=== PATIENT | female | born 1955 | race Caucasian/White ===

== ENCOUNTER → 2018-12-14 10:07 | Outpatient (POV) | payer MEDICARE, MEDICAID, SELFPAY | PROVIDERS: Visit Provider Nurse Practitioner Acute Care | DX: Z00.00 Encounter for general adult medical examination without abnormal findings (principal) ==

== ENCOUNTER → 2019-04-05 07:42 | Outpatient (CLI) | payer MEDICARE, MEDICAID, SELFPAY ==
--- NOTE | 2019-04-05 08:00 | US_ITS ---
US gallbladder HISTORY: Diarrhea, abdominal pain, nausea ITS.REASON: RUQ PAIN ORDERING PHYSICIAN: Tru Veliz MD PATIENT AGE: 63 years Comparison: None FINDINGS: PANCREAS: Unremarkable. No obvious mass or abnormal fluid collection. No ductal dilatation LIVER: No focal liver lesions demonstrated. Homogeneous echogenicity. No intrahepatic biliary ductal dilatation evident RIGHT KIDNEY: Unremarkable. Normal size and echogenicity. No hydronephrosis. There is a small right renal cyst measuring 1 cm. GALLBLADDER: No gallstones are apparent. There are multiple small polyps and sludge present within the gallbladder. No shadowing stones are apparent., Common bile duct is normal at 2 mm. IMPRESSION: Multiple small gallbladder polyps with sludge. No shadowing stones
== END ==
PROVIDERS: PCP Family Medicine; Visit Provider Family Medicine
DX: R10.11 Right upper quadrant pain (principal)
CPT/HCPCS: 76705

== ENCOUNTER → 2019-04-20 10:07 | Outpatient (CLI) | payer MEDICARE, MEDICAID, SELFPAY ==
--- NOTE | 2019-04-20 10:10 | NM_ITS ---
NM hepatobiliary w pharm HISTORY: ITS.REASON: RUQ PAIN, gallbladder polyps with sludge, abnormal ultrasound ORDERING PHYSICIAN: Tru Veliz MD PATIENT AGE: 63 years COMPARISON: None DOSE: 7.92 MCI TC Choletec 1.1 MCG CCK FINDINGS: Homogeneous activity is present within the hepatic parenchyma. Activity is present in the gallbladder by 10 minutes. Activity is present in the small bowel by 20 minutes. The gallbladder ejection fraction is calculated to be 99% The patient did not report pain or other symptoms during CCK infusion. IMPRESSION: Unremarkable hepatobiliary scan and gallbladder ejection fraction. No evidence of common or cystic duct obstruction with normal gallbladder ejection fraction
--- NOTE | 2019-04-20 11:16 | HMH.ITSHM ---
Current Home Medications as stated by this patient Millie Barrett or sales development representative. []TYLENOL LISINOPRIL ATORVASTATIN ATENOLOL AMLODIPINE
== END ==
PROVIDERS: PCP Family Medicine; Visit Provider Family Medicine
DX: R10.11 Right upper quadrant pain (principal)
CPT/HCPCS: 78227; A9537; J2805

== ENCOUNTER → 2020-02-21 13:29 | Outpatient (CLI) | payer MEDICARE, MEDICAID, SELFPAY ==
--- NOTE | 2020-02-21 13:34 | XR_ITS ---
PROCEDURE: XR CHEST PORTABLE CLINICAL HISTORY: COUGH, LOST VOICE COMPARISON: No exams were available for comparison FINDINGS: The cardiomediastinal silhouette and pulmonary vascularity are within normal limits. There is blunting of the left CP angle may be due to small effusion or pleural thickening. Minimal atelectatic or fibrotic changes are present in the left lung base. The remaining lungs are clear. No acute bony abnormalities. IMPRESSION: Minimal blunting of the left CP angle suggesting small effusion or pleural thickening with minimal atelectatic or fibrotic change in the left lung base Dictated by: Kar Ann MD 02/21/2020 14:26 Electronically signed by Kar Ann MD in [place] 02/21/2020 14:26
== END ==
PROVIDERS: PCP Family Medicine; Visit Provider Family Medicine
DX: R05 Cough (principal); R49.1 Aphonia
CPT/HCPCS: 71045

== ENCOUNTER → 2020-04-03 07:44 | Outpatient (CLI) | payer MEDICARE, MEDICAID, SELFPAY ==
--- NOTE | 2020-04-03 07:51 | MM_ITS ---
PROCEDURE: MM DIG SCREENING MAMM BI W/CAD Digital Breast Tomosynthesis Included CLINICAL INDICATION: SCREENING There is a history of breast cancer in the patient's maternal aunt diagnosed after menopause. COMPARISON: MAMMO from 12/28/2003 DIGMAMMS MAMMOGRAM SCREEN-CERTIFIED INDUSTRIAL HYGIENIST N/C from 12/28/2003 DMSB DIG MAMM-SCREEN [facility] from 07/05/2014 TECHNIQUE: Standard CC and MLO images and 3D Tomosynthesis was obtained. R2 CAD reviewed. FINDINGS: Moderate diffuse somewhat heterogenic fibroglandular densities are seen in both breasts. There is faint arterial calcification in each breast. There is a small benign-appearing nodular density inner quadrant left breast which may have been present previously but has shown slight interval increase in size. This likely is a tiny cyst or fibroadenoma but recommend the patient return for ultrasound examination IMPRESSION: Moderate breast density with possible new nodular lesion left breast BI-RAD Category: 0 Need Additional Imaging Evaluation FOLLOW-UP: IMM Immediate Follow-up Recommended (A letter has been sent to the patient regarding results of the study.) Dictated by: Dr. Jeremi Clements MD 04/04/2020 07:[address] Jeremi Clements MD in [place] 04/04/2020 07:53
== END ==
PROVIDERS: PCP Family Medicine; Visit Provider Family Medicine
DX: Z12.31 Encounter for screening mammogram for malignant neoplasm of breast (principal); Z87.891 Personal history of nicotine dependence; Z12.2 Encounter for screening for malignant neoplasm of respiratory organs
CPT/HCPCS: 77063; 77067

== ENCOUNTER → 2020-04-14 12:52 | Outpatient (CLI) | payer MEDICARE, MEDICAID, SELFPAY ==
--- NOTE | 2020-04-14 12:56 | US_ITS ---
PROCEDURE: US BREAST LT COMPLETE CLINICAL INDICATION: ABN MAMM COMPARISON: MM DIG SCREENING MAMM BI W/CAD from 04/03/2020 FINDINGS: Few somewhat heterogenic echogenicity is seen throughout the breast. There is a tiny hypoechoic cystic-appearing lesion at the 1 to 2 o'clock position near the nipple measuring 0.3 by 0.3 x 0.2 cm and this is likely a tiny cyst. There is a hypoechoic lesion 12 o'clock position near the nipple measuring 0.6 x 0.3 by 0.6 cm. There are internal echoes and this is likely a fibroadenoma. There is a somewhat poorly defined interface between this lesion and the surrounding somewhat heterogenic echogenicity of the breast parenchyma. There is no definite suspicious mass seen in the left breast on the recent mammogram at this location. However in view of the slightly ill-defined borders recommend the patient return for six-month follow-up left mammogram and ultrasound left breast to assure interval stability. IMPRESSION: Probable fibroadenoma 12 o'clock position left breast and recommend short interval follow-up as indicated above Dictated by: Dr. Jeremi Clements MD 04/21/2020 09:[address] Jeremi Clements MD in [place] 04/21/2020 09:10
== END ==
PROVIDERS: PCP Family Medicine; Visit Provider Family Medicine
DX: R92.8 Other abnormal and inconclusive findings on diagnostic imaging of breast (principal)
CPT/HCPCS: 76641

== ENCOUNTER → 2020-10-17 12:35 | Outpatient (CLI) | payer MEDICARE, MEDICAID, SELFPAY ==
--- NOTE | 2020-10-17 12:39 | MM_ITS ---
PROCEDURE: MM DIG MAMM DX UNILAT LT CAD Digital Breast Tomosynthesis Included CLINICAL INDICATION: ABN MAMM Six-month follow-up abnormal mammogram COMPARISON: MG MAMMO from 12/28/2003 MG DMSB DIG MAMM-SCREEN [facility] from 07/05/2014 MG MM DIG SCREENING MAMM BI W/CAD from 04/03/2020 US US BREAST LT COMPLETE from 04/14/2020 US US BREAST LT COMPLETE from 10/17/2020 TECHNIQUE: Standard CC and MLO images and 3D Tomosynthesis was obtained. R2 CAD reviewed. FINDINGS: There is average fibroglandular tissue. There is some minimal nodularity once again noted in the inferior aspect of the left breast which appears to compress on spot compression views. Benign-appearing nodule is noted in the medial aspect of the left breast measuring approximately 5 x 4 mm best seen on the tomograms. Left breast ultrasound: 3 mm cyst at 1 o'clock. At 12 o'clock there is a 5 mm hypoechoic nodule which is not significantly changed. This may even account for the mammographic abnormality. Overall, there has been no significant change. Recommend continued screening mammogram and left breast ultrasound march 2021 IMPRESSION: BI-RAD Category: 2 Benign Finding(s) FOLLOW-UP: 6M 6Month Follow-up (A letter has been sent to the patient regarding results of the study.) Dictated by: Kar Ann MD 10/27/2020 11:00 Kar Ann MD in [place] 10/27/2020 11:00
== END ==
PROVIDERS: PCP Family Medicine; Visit Provider Family Medicine
DX: R92.8 Other abnormal and inconclusive findings on diagnostic imaging of breast (principal)
CPT/HCPCS: 76641; 77061; 77065; G0279

== ENCOUNTER → 2021-03-27 09:08 | Outpatient (CLI) | payer MEDICARE, MEDICAID, SELFPAY ==
--- NOTE | 2021-03-27 09:12 | US_ITS ---
PROCEDURE: US ABDOMEN LIMITED CLINICAL INDICATION: RUQ ABD PAIN COMPARISON: No exams were available for comparison FINDINGS: PANCREAS: Visualized pancreas is unremarkable LIVER: No focal liver lesions. The liver is normal in size. No intra or extrahepatic biliary dilation. The portal vein demonstrates appropriate directional flow. RIGHT KIDNEY: Unremarkable. Normal size and echogenicity. No hydronephrosis GALLBLADDER: Multiple calculi are noted within the gallbladder. No significant gallbladder wall thickening or pericholecystic fluid. Large ascites is noted. IMPRESSION: Ascites. Cholelithiasis without evidence of cholecystitis. Dictated by: Astrid Saldana 03/27/2021 11:33 Astrid Saldana in [place] 03/27/2021 11:33
== END ==
PROVIDERS: PCP Family Medicine; Visit Provider Family Medicine
DX: R10.11 Right upper quadrant pain (principal)
CPT/HCPCS: 76705

== ENCOUNTER → 2021-03-29 07:40 | Outpatient (CLI) | payer MEDICARE, MEDICAID, SELFPAY ==
--- NOTE | 2021-03-29 07:43 | CT_ITS ---
PROCEDURE: CT LUNG SCREENING CLINICAL INDICATION: H/O NICOTINE DEPENDENCE COMPARISON: No exams were available for comparison TECHNIQUE: The exam was performed on a GE Light Speed [address] scanner using 2.90 mGy CTDI. A low dose helical CT CHEST was performed on a multi-detector scanner. All CT scans at the facility use one or more dose reduction, viz: automated exposure control, ma/kV adjustment per patient size (including targeted exams where dose is matched to indication, i.e. head), or iterative reconstruction technique. The LDCT was performed in a facility that meets the criteria for the screening program. Data regarding this exam was submitted to ACR which is an approved registry. The order for this exam indicates that it came as a result of a lung cancer screening counseling shard decision-making visit that included all the elements required of such a visit including smoking cessation. The radiologist interpreting this exam meets the CMS criteria for the LDCT lung cancer screening program. The exam is reported using the Lung-RADS classification scale and reported to the ACR registry. NOTE: This study was performed for the specific purposes of lung cancer screening and is not an alternative to diagnostic chest CT. RADIATION DOSE: CTDI vol(CT dose Index-volume) = 2.90mG DLP (Dose Length Product) = mGcm FINDINGS: Calcified granuloma is noted in the left lower lobe. Atelectasis is noted in the lingula. Minor subpleural interstitial reticulations are noted. There is paraseptal emphysematous changes. Few bullae are noted in the bilateral lower lobes, worse in the left lower lobe. No suspicious lung nodules are noted. No lobar consolidation, pleural effusions or pneumothorax. The central tracheobronchial tree is patent. Nonobstructive calculus noted in the right kidney. Left nephrectomy is noted. Multiple calcified granulomas noted in the liver and spleen. Otherwise the visualized upper abdominal solid organs are unremarkable. Vascular calcification is noted. IMPRESSION: Lung-RADS Category 2 Benign Appearance or Behavior Follow-up: Continue low-dose screening in 12 months is recommended. Minor and early interstitial lung disease. Emphysematous changes. Dictated by: Astrid Saldana 03/29/2021 11:01 Astrid Saldana in [place] 03/29/2021 11:01
--- NOTE | 2021-03-29 07:44 | XR_ITS ---
PROCEDURE: XR DEXA AXIAL SKELETON CLINICAL HISTORY: POST MENOPAUSAL COMPARISON: No exams were available for comparison FINDINGS: The right hip BMD is 0.673 grams/centimeter square with a T-score of -2.2. The left hip BMD is 0.591 grams/centimeters square with a T-score of -2.9. The lumbar spine BMD is 0.882 grams/centimeters square with a T-score of -1.5. IMPRESSION: Osteoporosis of left hip and osteopenia of the right hip and lumbar spine, associated with moderate to high fracture risk. Dictated by: Astrid Saldana 03/29/2021 15:42 Astrid Saldana in [place] 03/29/2021 15:42
== END ==
PROVIDERS: PCP Family Medicine; Visit Provider Family Medicine
DX: Z78.0 Asymptomatic menopausal state (principal); Z87.891 Personal history of nicotine dependence
CPT/HCPCS: 71271; 77080

== ENCOUNTER → 2022-07-15 07:53 | Outpatient (CLI) | payer MEDICARE, MEDICAID, SELFPAY ==
--- NOTE | 2022-07-15 08:02 | MM_ITS ---
PROCEDURE INFORMATION: Exam: MG Bilateral Screening 3D Mammography Exam date and time: 07/15/2022 8:29 AM Age: 66 years old Clinical indication: Screening examination. Her maternal aunt had breast cancer at age 80. TECHNIQUE: Imaging protocol: Bilateral Screening tomosynthesis and 2D mammography including computer-aided detection (CAD) when performed. COMPARISON: 1. MG MM DIG MAMM DX UNILAT LT CAD 10/17/2020 1:03 PM 2. MG MM DIG SCREENING MAMM BI W/CAD 04/03/2020 8:38 AM 3. MG DMSB DIG MAMM-SCREEN [facility] 07/05/2014 10:44 AM 4. US BREAST LT COMPLETE 10/17/2020 1:47 PM FINDINGS: MAMMOGRAPHY: Breast composition: There are scattered areas of fibroglandular density. Mass: No suspicious mass. Architectural distortion: None. Calcifications: No suspicious calcifications. Asymmetric density: None. Skin thickening: None. Axillary adenopathy: None. IMPRESSION: No mammographic evidence of malignancy. Annual screening is recommended unless otherwise clinically indicated. ASSESSMENT: BI-RADS Category 1: Negative
--- NOTE | 2022-07-15 08:03 | XR_ITS ---
FINAL REPORT TECHNIQUE: Bone densitometry calculations of the lumbar spine and left hip were obtained. CLINICAL HISTORY: post menopausal, prior 2020 COMPARISON: March 29, 2021 FINDINGS: DEXA BONE DENSITY AXIAL SKELETON Using L1-4, the bone mineral density of the spine is 0.883 g/cm2, corresponding to T-score of -1.5. Previously measured 0.882 /cm2, corresponding to a T-score of -1.5. Using the left hip, the bone mineral density of the femoral neck is 0.602 g/cm2, corresponding to a T-score of -2.8. Previously measured 0.591/cm2, corresponding to a T-score of -2.9. NOTE: T-score: Standard deviation compared with peak bone mass of young adult mean. *Following the recommendations of the International Society of Bone Densitometry, classification of hip BMD is based on the lower of two T-scores; total hip or femoral neck. IMPRESSION: Osteoporosis: Lowest T-score is at or below -2.5. This patient's T-score meets the World Health Organization criteria for osteoporosis. These values are not significantly changed from the prior exam. Reviewed, Interpreted and Dictated by Dane Ayala III, MD Transcribed by Brittnee Rowan Authenticated and [facility]
== END ==
PROVIDERS: PCP Family Medicine; Visit Provider Family Medicine
DX: Z12.31 Encounter for screening mammogram for malignant neoplasm of breast (principal); Z78.0 Asymptomatic menopausal state; Z87.891 Personal history of nicotine dependence; Z12.2 Encounter for screening for malignant neoplasm of respiratory organs
CPT/HCPCS: 77063; 77067; 77080